=== PATIENT | male | born 1960 | race Caucasian/White ===

== ENCOUNTER → 2018-07-06 08:39 | Outpatient (CLI) | payer BC, SELFPAY ==
--- NOTE | 2018-07-06 08:43 | CT_ITS ---
CT abdomen pelvis wo con CLINICAL INDICATION: Abdominal pain and swelling for several years worsening the last couple months ITS.REASON: hernia ORDERING PHYSICIAN: Nas Loco MD PATIENT AGE: 58 years COMPARISON: None TECHNIQUE: Axial images obtained with sagittal and coronal reformats. All CT scans at the facility use one or more dose reduction, viz: automated exposure control, ma/kV adjustment per patient size (including targeted exams where dose is matched to indication, i.e. head), or iterative reconstruction technique. PROCEDURE: Oral Contrast: Redicat IV Contrast: Patient refused IV contrast. FINDINGS: No acute finding in the lung bases. The liver, spleen, adrenal glands, pancreas, and kidneys have unremarkable unenhanced CT appearance. There is mild prominence of the renal pelves bilaterally nonspecific. Scattered small lymph nodes within the mesenteric axis. No evidence of intestinal obstruction or free air. No evidence of appendicitis or diverticulitis. No pelvic mass or abnormal fluid collection is evident. There is some thickening of the left inguinal region which could be due to prior surgery. There is a large right-sided hydrocele with the right aspect of the scrotum measuring 10 cm in width and 14 cm in length. Small left hydrocele also suspected as seen on ultrasound. No abdominal wall hernias are evident. No acute bony anomalies. IMPRESSION: 1. Large right hydrocele. 2. No evidence of abdominal wall hernia. There is some mild thickening of the left inguinal region which could be due to prior surgery. 3. No acute intra-abdominal or pelvic findings
--- NOTE | 2018-07-06 08:43 | US_ITS ---
US scrotum HISTORY: Increased scrotal swelling ITS.REASON: hernia ORDERING PHYSICIAN: Nas Loco MD PATIENT AGE: 58 years Comparison: None FINDINGS: There is a large right hydrocele with internal septations/synechiae. The right testicle is displaced inferiorly. Right testicle measures 4 x 2 x 3.7 cm. No mass evident blood flow is present. Unremarkable head. The left testicle is 5 x 2 x 3.7 cm. Blood flow is present. No obvious testicular mass. There is a small left hydrocele. IMPRESSION: Large right complex hydrocele and smaller left hydrocele The testicles are displaced inferiorly but have an unremarkable appearance
[2018-07-06 10:29] LABS: Anion Gap 10.2 mEq/L (5-15); Blood Urea Nitrogen 8 mg/dL (7-18); Calcium 9.6 mg/dL (8.5-10.1); Carbon Dioxide 33 mmol/L (21.0-32.0); Chloride 101 mmol/L (98-107); Creatinine,Serum 0.78 mg/dL (0.70-1.30); Estimated Glomerular Filt Rate 103 ml/min (>60); GFR (African American) 125 ML/MIN (>60); Glucose 94 mg/dL (74-106); Potassium 5.2 mmoL/L (3.5-5.1); Sodium 139 mmol/L (136-145)
[2018-07-06 10:47] LABS: Basophils % 0.9 % (0.1-2.0); Eosinophils # 0.1 K/mm3 (0.0-0.4); Eosinophils % 2.9 % (0.1-12.0); Hematocrit 52.5 % (42.0-52.0); Hemoglobin 17.1 g/dL (14.1-18.0); Lymphocytes # 1.6 K/mm3 (0.7-4.5); Lymphocytes % 34.8 K/mm3 (10-50); Mean Corpuscular HGB Conc 32.6 g/dL (31.8-35.4); Mean Corpuscular Hemoglobin 31.5 pg (27.0-31.2); Mean Corpuscular Volume 96.6 fl (80-94); Monocytes # 0.5 K/mm3 (0.1-1.0); Monocytes % 10.7 % (1.7-9.3); Neutrophils # 2.3 K/mm3 (1.8-7.8); Neutrophils % 50.8 % (37.0-80.0); Platelet Count 169 K/mm3 (142-424); Red Blood Count 5.43 M/mm3 (4.60-6.20); Red Cell Distribution Width 13.7 % (11.5-17.5); White Blood Count 4.5 K/mm3 (4.8-10.8)
== END ==
PROVIDERS: PCP Internal Medicine Adolescent Medicine; Visit Provider Otolaryngology
DX: K46.9 Unspecified abdominal hernia without obstruction or gangrene (principal)
CPT/HCPCS: 36415; 74176; 76870; 80048; 85025

== ENCOUNTER 2021-08-12 08:53 | Emergency (ER) | payer OTHER, SELFPAY ==
[2021-08-12 08:54] VITALS: BP 157/113; PULSE 104; RESP 18; TEMP 36.9; O2SAT 100; BMI 23.3
[2021-08-12 09:30] VITALS: BP 131/95; PULSE 98; O2SAT 97
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
[2021-08-12 09:58] VITALS: BP 131/95; PULSE 99; RESP 18; TEMP 36.9; O2SAT 99
== END 2021-08-12 09:59 | disposition home or self-care (01) ==
PROVIDERS: Emergency Provider Family Medicine
DX: G25.0 Essential tremor (principal); M54.2 Cervicalgia; F17.210 Nicotine dependence, cigarettes, uncomplicated
CPT/HCPCS: 99281

== ENCOUNTER → 2021-08-19 14:03 | Outpatient (CLI) | payer OTHER, SELFPAY ==
--- NOTE | 2021-08-19 14:10 | XR_ITS ---
PROCEDURE: XR MULTIPLE SPINE 6+V CLINICAL INDICATION: DONA LEG PAIN,NECK PAIN COMPARISON: CT ABDPELWO CT abdomen pelvis wo con from 07/06/2018 FINDINGS: Cervical spine: Normal alignment. Degenerative disc disease C4-C5, C5-C6, and C6-C7. There are small anterior osteophytes. Prominent facet hypertrophic changes present on the left at C2-C3 with left-sided foraminal narrowing at C2-C3 and C6-C7. Right-sided foraminal narrowing is present at C3-C4 and C5-C6. No fracture or dislocation. No lytic or blastic change. Carotid artery calcification Lumbar spine: Multilevel endplate osteophytes. No fracture or dislocation. There is mild loss of height anteriorly of L2 and L1 which appears chronic. There is generalized vascular calcification. Prostate calcification noted.. There are at least 2 small right renal calculi at 1-2 mm. IMPRESSION: Degenerative changes as described above. No acute fracture. Right nephrolithiasis Dictated by: Artur Tolbert MD 08/19/2021 17:29 Artur Tolbert MD in [place] 08/19/2021 17:29
== END ==
PROVIDERS: PCP Internal Medicine Adolescent Medicine; Visit Provider Internal Medicine Adolescent Medicine
DX: M54.2 Cervicalgia (principal); M79.604 Pain in right leg; M79.605 Pain in left leg
CPT/HCPCS: 72084

== ENCOUNTER → 2021-09-16 18:12 | Outpatient (CLI) | payer OTHER, SELFPAY ==
[2021-09-16 18:42] LABS: Basophils # 0.1 K/mm3 (0-0.2); Basophils % 1.3 % (0.1-2.0); Eosinophils # 0.1 K/mm3 (0.0-0.4); Eosinophils % 1.3 % (0.1-12.0); Hematocrit 47.8 % (42.0-52.0); Hemoglobin 15.9 g/dL (14.1-18.0); Lymphocytes # 1.6 K/mm3 (0.7-4.5); Lymphocytes % 27.3 % (10-50); Mean Corpuscular HGB Conc 33.4 g/dL (31.8-35.4); Mean Corpuscular Hemoglobin 32.9 pg (27.0-31.2); Mean Corpuscular Volume 98.7 fl (80-94); Mean Platelet Volume 10.7 fl (7.4-10.4); Monocytes # 0.8 K/mm3 (0.1-1.0); Monocytes % 14.2 % (1.7-9.3); Neutrophils # 3.2 K/mm3 (1.8-7.8); Platelet Count 186 K/mm3 (142-424); Red Blood Count 4.84 M/mm3 (4.60-6.20); Red Cell Distribution Width 13.5 % (11.5-17.5); White Blood Count 5.7 K/mm3 (4.8-10.8)
[2021-09-16 19:40] LABS: Alanine Aminotransferase 34 U/L (12-78); Albumin Level 3.9 g/dl (3.5-5.0); Albumin/Globulin Ratio 1.5 (1.1-1.8); Alkaline Phosphatase 97 U/L (38-126); Anion Gap 3.9 mEq/L (5-15); Aspartate Amino Transferase 51 U/L (17-59); Bilirubin,Direct 0.3 mg/dl (0.0-0.4); Bilirubin,Indirect 0.3 mg/dL (0.0-0.9); Bilirubin,Total 0.6 mg/dl (0.2-1.3); Bilirubin,Unconjugated 0.3 mg/dL (0.0-1.1); Blood Urea Nitrogen 10 mg/dl (9-20); Calcium 9.5 mg/dl (8.4-10.2); Carbon Dioxide 32 mmol/L (22.0-30.0); Chloride 103 mmol/L (98-107); Estimated Glomerular Filt Rate 115 ml/min (>60); GFR (African American) 140 ML/MIN (>60); Globulin 2.6 g/dL (1.3-3.2); Glucose 121 mg/dl (74-100); Potassium 4.9 mmoL/L (3.5-5.1); Sodium 134 mmol/L (136-145); Total Protein,Serum 6.5 g/dl (6.3-8.2)
[2021-09-17 12:51] LABS: Chol/HDL Ratio 2.3 (1-3.5); Cholesterol 204 mg/dl (140-200); HDL Cholesterol 87 mg/dl (40-60); Triglycerides 96 mg/dl (30-150); VLDL Cholesterol 19 mg/dL (0-40)
[2021-09-17 13:03] LABS: Direct LDL Cholesterol 109.66 mg/dL (100-129)
== END ==
PROVIDERS: Visit Provider Internal Medicine Adolescent Medicine
DX: R03.0 Elevated blood-pressure reading, without diagnosis of hypertension (principal)
CPT/HCPCS: 80053; 80061; 80076; 85025

== ENCOUNTER → 2023-03-16 16:28 | Outpatient (CLI) | payer OTHER, SELFPAY ==
[2023-03-16 16:26] LABS: Basophils # 0.1 K/mm3 (0-0.2); Basophils % 0.7 % (0.1-2.0); Eosinophils # 0.3 K/mm3 (0.0-0.4); Eosinophils % 3.5 % (0.1-12.0); Hematocrit 50.8 % (42.0-52.0); Hemoglobin 17.2 g/dL (14.1-18.0); Lymphocytes # 1.6 K/mm3 (0.7-4.5); Lymphocytes % 20.1 % (10-50); Mean Corpuscular HGB Conc 33.9 g/dL (31.8-35.4); Mean Corpuscular Hemoglobin 32.5 pg (27.0-31.2); Mean Corpuscular Volume 95.9 fl (80-94); Mean Platelet Volume 8.1 fl (7.4-10.4); Monocytes # 0.7 K/mm3 (0.1-1.0); Neutrophils # 5.4 K/mm3 (1.8-7.8); Neutrophils % 66.8 % (37.0-80.0); Platelet Count 137 K/mm3 (142-424); Red Cell Distribution Width 13.7 % (11.5-17.5); White Blood Count 8.1 K/mm3 (4.8-10.8)
[2023-03-16 16:30] LABS: Alanine Aminotransferase 62 U/L (12-78); Albumin Level 4.2 g/dl (3.5-5.0); Albumin/Globulin Ratio 1.7 (1.1-1.8); Alkaline Phosphatase 107 U/L (38-126); Anion Gap 11.8 mEq/L (5-15); Aspartate Amino Transferase 70 U/L (17-59); Bilirubin,Total 1.4 mg/dl (0.2-1.3); Blood Urea Nitrogen 6 mg/dl (9-20); Calcium 9.6 mg/dl (8.4-10.2); Carbon Dioxide 29 mmol/L (22.0-30.0); Chloride 99 mmol/L (98-107); Estimated Glomerular Filt Rate 98 ml/min (>60); GFR (African American) 119 ML/MIN (>60); Globulin 2.5 g/dL (1.3-3.2); Glucose 112 mg/dl (74-100); Potassium 4.8 mmoL/L (3.5-5.1); Sodium 135 mmol/L (136-145); Total Protein,Serum 6.7 g/dl (6.3-8.2)
== END ==
PROVIDERS: PCP Family Medicine; Visit Provider Family Medicine
DX: R63.4 Abnormal weight loss (principal); Z68.22 Body mass index [BMI] 22.0-22.9, adult
CPT/HCPCS: 80053; 84439; 84443; 85025

== ENCOUNTER → 2023-03-17 09:34 | Outpatient (CLI) | payer BC, OTHER, SELFPAY ==
--- NOTE | 2023-03-17 09:38 | XR_ITS ---
FINAL REPORT CLINICAL HISTORY: weight loss, h/o smoker COMPARISON: None FINDINGS: There are underlying emphysematous changes. No acute pulmonary density is present. No significant pleural effusion. There is no pneumothorax. The heart is normal in size. The mediastinum is unremarkable. IMPRESSION: Emphysema without acute process. Reviewed, Interpreted and Dictated by Messi Mckeon MD Transcribed by Laney Diaz Authenticated and [facility]
== END ==
PROVIDERS: PCP Family Medicine; Visit Provider Family Medicine
DX: R63.4 Abnormal weight loss (principal); F17.210 Nicotine dependence, cigarettes, uncomplicated
CPT/HCPCS: 71046

== ENCOUNTER → 2023-04-16 10:40 | Outpatient (CLI) | payer OTHER, SELFPAY ==
[2023-04-16 17:46] LABS: Thyroid Stimulating Hormone 2.25 uIU/mL (0.465-4.68)
== END ==
PROVIDERS: PCP Family Medicine; Visit Provider Family Medicine
DX: E03.9 Hypothyroidism, unspecified (principal)
CPT/HCPCS: 84443

== ENCOUNTER → 2023-09-14 12:00 | Outpatient (CLI) | payer OTHER, SELFPAY | PROVIDERS: PCP Family Medicine; Visit Provider Family Medicine | DX: E03.9 Hypothyroidism, unspecified (principal) | CPT/HCPCS: 84443 ==

== ENCOUNTER 2024-06-08 09:48 | Outpatient (CLI) | payer MEDICAID, SELFPAY ==
[2024-06-08 17:08] LABS: Basophils # 0.1 K/mm3 (0-0.2); Basophils % 0.8 % (0.1-2.0); Eosinophils # 0.1 K/mm3 (0.0-0.4); Eosinophils % 1.2 % (0.1-12.0); Hematocrit 47.3 % (42.0-52.0); Hemoglobin 15.3 g/dL (14.1-18.0); Mean Corpuscular HGB Conc 32.4 g/dL (31.8-35.4); Mean Corpuscular Hemoglobin 32.9 pg (27.0-31.2); Mean Corpuscular Volume 101.6 fl (80-94); Mean Platelet Volume 10.8 fl (7.4-10.4); Monocytes % 12.2 % (1.7-9.3); Neutrophils % 61.8 % (37.0-80.0); Platelet Count 170 K/mm3 (142-424); Red Blood Count 4.66 M/mm3 (4.60-6.20); Red Cell Distribution Width 13.9 % (11.5-17.5); White Blood Count 8.1 K/mm3 (4.8-10.8)
[2024-06-08 17:27] LABS: Alanine Aminotransferase 67 U/L (12-78); Albumin Level 3.3 g/dl (3.5-5.0); Albumin/Globulin Ratio 1.1 (1.1-1.8); Alkaline Phosphatase 137 U/L (38-126); Aspartate Amino Transferase 57 U/L (17-59); Bilirubin,Total 0.7 mg/dl (0.2-1.3); Blood Urea Nitrogen 5 mg/dl (9-20); Calcium 9.4 mg/dl (8.4-10.2); Carbon Dioxide 30 mmol/L (22.0-30.0); Chloride 104 mmol/L (98-107); Chol/HDL Ratio 2.2 (1-3.5); Cholesterol 173 mg/dl (140-200); Estimated Glomerular Filt Rate 168 ml/min (>60); GFR (African American) 204 ML/MIN (>60); Glucose 106 mg/dl (74-100); HDL Cholesterol 80 mg/dl (40-60); Sodium 134 mmol/L (136-145); Total Protein,Serum 6.3 g/dl (6.3-8.2); Triglycerides 57 mg/dl (30-150); VLDL Cholesterol 11 mg/dL (0-40)
[2024-06-08 17:38] LABS: Direct LDL Cholesterol 83.31 mg/dL (100-129)
[2024-06-08 17:57] LABS: Prostate Specific Ag Screen 0.5 ng/ml (0.0-4.0); Thyroid Stimulating Hormone 0.69 uIU/mL (0.465-4.68)
== END 2024-06-08 23:59 | disposition home or self-care (01) ==
LOC: LAB.DROPOF 06-09 09:48
PROVIDERS: PCP Family Medicine; Visit Provider Family Medicine
DX: E03.9 Hypothyroidism, unspecified (principal); R63.4 Abnormal weight loss; Z68.1 Body mass index [BMI] 19.9 or less, adult; G25.0 Essential tremor; F17.210 Nicotine dependence, cigarettes, uncomplicated
CPT/HCPCS: 80050; 80053; 80061; 84443; 85025; G0103

== ENCOUNTER 2024-06-14 09:26 | Outpatient (CLI) | payer MEDICAID, SELFPAY ==
--- NOTE | 2024-06-14 09:30 | CA_ITS ---
FINAL REPORT TECHNIQUE: Duplex color Doppler with spectral analysis performed of the lower extremities. CLINICAL HISTORY: LEG WEAKNESS,SMOKER,HTN,PAIN COMPARISON: None FINDINGS: RIGHT LOWER EXTREMITY: Velocities cm/sec: CAMP HOUSEKEEPER: 54 SFA Prox: 53 SFA Mid: 55 SFA Dist: 38 POP: 49 Neda: 47 REGISTERED NURSE MATERNITY: 73 Dorsalis Pedis: 38 Waveforms are biphasic and triphasic. LEFT LOWER EXTREMITY: Velocities cm/sec: CAMP HOUSEKEEPER: 65 SFA Prox: 54 SFA Mid: 48 SFA Dist: 38 POP: 41 Neda: 40 REGISTERED NURSE MATERNITY: 63 Dorsalis Pedis: 50 Waveforms are biphasic and triphasic. IMPRESSION: No significant peripheral artery disease. Reviewed, Interpreted and Dictated by Nas Armijo III, MD Transcribed by Laney Diaz Authenticated and [facility]
== END 2024-06-14 23:59 | disposition home or self-care (01) ==
LOC: RT 09:27
PROVIDERS: PCP Family Medicine; Visit Provider Family Medicine
DX: R29.898 Other symptoms and signs involving the musculoskeletal system (principal); M79.604 Pain in right leg; M79.605 Pain in left leg
CPT/HCPCS: 93925

== ENCOUNTER 2024-06-16 09:13 | Outpatient (CLI) | payer MEDICAID, SELFPAY ==
--- NOTE | 2024-06-16 09:19 | XR_ITS ---
FINAL REPORT CLINICAL HISTORY: Leg weakness COMPARISON: None FINDINGS: LUMBAR SPINE 3 views of the lumbar spine were obtained. There is no acute fracture. There is no malalignment. The vertebrae are normal in height. There are moderate degenerative changes with osteophytes. Vascular calcifications are identified. IMPRESSION: Moderate degenerative changes. Reviewed, Interpreted and Dictated by Nas Armijo III, MD Transcribed by Sisi Stone Authenticated and [facility]
== END 2024-06-16 23:59 | disposition home or self-care (01) ==
LOC: RAD 09:16
PROVIDERS: PCP Family Medicine; Visit Provider Family Medicine
DX: R29.898 Other symptoms and signs involving the musculoskeletal system (principal)
CPT/HCPCS: 72100

== ENCOUNTER 2024-06-17 09:08 | Day surgery (SDC) | payer MEDICAID, SELFPAY ==
[2024-06-17 09:28] VITALS: BP 150/97; PULSE 55; RESP 17; TEMP 36.4; O2SAT 95; BMI 19.1
[2024-06-17] MEDS: LACTATED RINGERS 1000ML 1,000 ML 25 ML IV (09:38)
--- NOTE | 2024-06-17 09:43 | EXP.ANES.CKL ---
[facility] Disclaimer: The information contained in this section may have been updated after the patient was seen, as this information can be updated by other users. Medical History (Updated 06/17/24 @ 09:32 by Monse Looney RN) Arthritis History of gastroesophageal reflux (GERD) Thyroid disease Allergies Hypertension Essential tremor Surgical History H/O removal of cyst H/O hand surgery H/O hernia repair Family History Father Cancer Coronary artery disease Brother Coronary artery disease Social History (Updated 06/17/24 @ 09:32 by Monse Looney RN) Smoking Status: Current every day smoker tobacco type: cigarettes packs per day: 1 alcohol intake: current alcohol intake frequency: 0-2 drinks per day substance use type: denies use current occupational status: retired Travel in the last 8 weeks: None household members: none housing: house 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 current occupational exposures/hazards: No caffeine: Yes [facility] Anesthesia Checklist Patient Identification Patient Identification: Arm Band Structural Data Admitted From: Home Planned Operative Procedure/s: EGD Consent for Planned Operative Procedure(s) Verified: Yes Verified Documents: Surgical Consent and History and Physical NPO Status Verified Time NPO: 00:00 Additional verifications Anesthesia Reactions: No Hx Blood Transfusions: No Blood Transfusion Reaction: No Airway Assessment Mallampati Score:: Class II C-Spine Mobility Assessed: Yes TMJ Mobility Assessed: Yes Dentition: Good Dentition Neurological Assessment Level of Consciousness: Awake, Alert and Appropriate Anesthesia Plan Anesthesia Risk discussed: Yes Anesthesia Plan: Verified ASA Class: II Anesthesia Type: MAC
[2024-06-17 09:47] VITALS: O2SAT 99
--- NOTE | 2024-06-17 10:04 | P.PCN_ITS ---
Procedure: Date: 06/17/24 Patient Date of :: 1960 Procedure Performed:: Esophagogastroduodenoscopy with biopsies . Indications:: Patient is a 64-year-old male referred by Dr. Alfonso Purcell for upper e ndoscopy due to weight loss. He has early satiety. He describes symptoms of indigestion . Performing Provider:: Nas Looc MD Referring Provider:: Alfonso Purcell MD Sedation:: MAC sedation Procedure:: Patient history was obtained and appropriate physical examination was performed. Patient's medications and allergies were reviewed. Informed consent was obtained after explaining the benefits, alternatives, and risks of the procedure including, but not limited to, bleeding, perforation, missed lesions, and adverse reaction to anesthesia medications. Patient was transported to endoscopy procedure room. Patient was connected to monitoring devices. Throughout the procedure the patient's blood pressure, pulse, and oxygen saturations were monitored continuously. Patient identificati on and planned procedure were verified by the staff. Patient was positioned in lateral decubitus position. Olympus endoscope was inserted via the oropharynx. Esophagus was cannulated. Overall esophagus appeared relatively unremarkable. Gastroesophageal junction was encountered at 40 cm from the incisors. There were findings consistent with possible linear island of Braswell's esophagus. Stomach was cannulated and insufflated. Limited retroflexion was performed. There is some diffuse moderate nonerosive gastropathy. Pylorus was traversed. There was some mild nonerosive duodenitis in the second portion of the duodenum. This was biopsied. Gastric biopsies were obtained. Endoscope was withdrawn into the distal esophagus and several biopsies were obtained at the gastroesophageal junction to rule out Braswell's esophagus. Biopsy was obtained of the distal esophagus. Endoscope was withdrawn. . Findings:: Gastroesophageal junction at 40 cm Possible Braswell's esophagus Moderate gastropathy/gastritis, biopsied Mild duodenitis, biopsied . Recommendations:: Plan to follow-up on the results of the biopsies. Manage appropriately medically. Symptoms potentially may be lifestyle related. Could require metabolic workup. May need gallbladder evaluation. Complications:: None immediately apparent Estimated blood obtained (mL): 2 Colonoscopy Component Colonoscopy Component Was a colonoscopy performed during today's procedure?: No
[2024-06-17 10:05] VITALS: BP 84/56; PULSE 65; RESP 12; TEMP 36.2; O2SAT 100
[2024-06-17 10:15] VITALS: BP 89/56; PULSE 55; RESP 16; O2SAT 100
[2024-06-17 10:25] VITALS: BP 111/71; PULSE 57; RESP 16; O2SAT 100
[2024-06-17 10:32] VITALS: BP 121/67; PULSE 55; RESP 16; O2SAT 100
== END 2024-06-17 10:42 | disposition home or self-care (01) ==
PROVIDERS: PCP Family Medicine; Visit Provider Surgery
PROC: 0DJ08ZZ Inspection of Upper Intestinal Tract, Via Natural or Artificial Opening Endoscopic (ICD-10-PCS; CPT 43235; principal; 2024-06-17 10:30)
DX: R63.4 Abnormal weight loss (principal); Z68.1 Body mass index [BMI] 19.9 or less, adult; R68.81 Early satiety; K30 Functional dyspepsia; K31.9 Disease of stomach and duodenum, unspecified; K29.80 Duodenitis without bleeding
CPT/HCPCS: 43239; J7120